=== PATIENT | male | born 1965 | race African-American/Black ===

== ENCOUNTER 2020-10-10 01:01 | Emergency (ER) | payer MEDICAID ==
[~2020-10-10] VITALS: Ht 157.5 cm; Wt 63.6 kg
[2020-10-10 01:04] VITALS: BP 129/87
== END 2020-10-10 01:55 | disposition home or self-care (01) ==
LOC: ER 01:01
DX: R09.81 Nasal congestion (principal); R07.89 Other chest pain; Z72.89 Other problems related to lifestyle; Z88.6 Allergy status to analgesic agent
CPT/HCPCS: 93005; 99283